=== PATIENT | male | born 1980 | race African-American/Black ===

== ENCOUNTER 2019-03-17 03:39 | Emergency (ER) | payer OTHER ==
[~2019-03-17] VITALS: Ht 175.3 cm; Wt 80.9 kg
[2019-03-17] MEDS ORDERED: NS 1,000 ML IV ONE (06:45)
[2019-03-17] MEDS ORDERED: KETOROLAC 30 MG/ML VIAL (J1885) IV ONE (06:45)
[2019-03-17 07:13] LABS: BASO # 0.1 10^3/uL (0.0-0.2); EOS # 0.2 10^3/uL (0.0-0.5); EOS % 3.1 % (0.0-3.0); HEMATOCRIT 42.4 % (42.0-52.0); HEMOGLOBIN 13.5 g/dl (13.5-17.5); LYMPH # 2.1 10^3/uL (1.5-5.0); MEAN CORPUSCULAR HEMOGLOBIN 27.1 pg (27.0-33.0); MEAN CORPUSCULAR HGB CONC 31.8 g/dl (32.0-36.5); MONO # 0.4 10^3/uL (0.0-0.8); MONO % 8.2 % (0.0-5.0); NEUTROPHILS # 2.2 10^3/uL (1.5-8.5); NEUTROPHILS % 45.1 % (36.0-66.0); PLATELET COUNT, AUTOMATED 228 10^3/uL (150-450); RED BLOOD COUNT 4.99 10^6/uL (4.30-6.10); WHITE BLOOD COUNT 4.9 10^3/uL (4.0-10.0)
--- NOTE | 2019-03-17 07:29 | REPVR ---
PROCEDURE INFORMATION: Exam: CT Abdomen And Pelvis Without Contrast Exam date and time: 03/17/2019 6:46 AM Age: 38 years old Clinical indication: Abdominal pain; Flank; Left; Additional info: Left flank pain TECHNIQUE: Imaging protocol: Computed tomography of the abdomen and pelvis without contrast. Radiation optimization: All CT scans at this facility use at least one of these dose optimization techniques: automated exposure control; mA and/or kV adjustment per patient size (includes targeted exams where dose is matched to clinical indication); or iterative reconstruction. COMPARISON: No relevant prior studies available. FINDINGS: Liver: Normal. No mass. Gallbladder and bile ducts: Normal. No calcified stones. No ductal dilation. Pancreas: Normal. No ductal dilation. Spleen: Normal. No splenomegaly. Adrenals: Normal. No mass. Kidneys and ureters: Normal. No hydronephrosis. Stomach and bowel: There is moderate diffuse colonic stool burden particularly in the rectum. There is suggestion of mild rectal wall thickening. There are likely some fluid containing small bowel loops adjacent to the cecum given the appearance of pericecal fluid. Appendix: No evidence of appendicitis. Intraperitoneal space: Unremarkable. No free air. No significant fluid collection. Vasculature: Unremarkable. No abdominal aortic aneurysm. Lymph nodes: Unremarkable. No enlarged lymph nodes. Bladder: The urinary bladder is under distended limiting its evaluation. Reproductive: Unremarkable as visualized. Bones/joints: Unremarkable. No acute fracture. Soft tissues: Unremarkable. IMPRESSION: 1. Moderate diffuse colonic stool burden particularly in the rectum where there is suggestion of some rectal wall thickening. Correlate clinically for proctitis. 2. Nondistended urinary bladder limiting evaluation for wall thickening. Correlate clinically for cystitis. Electronically signed by: Jeronimo Patel On 03/17/2019 07:28:46 AM
[2019-03-17 07:34] LABS: ALBUMIN 3.6 GM/DL (3.2-5.2); ALT/SGPT 16 U/L (12-78); BILIRUBIN,TOTAL 0.4 MG/DL (0.2-1.0); BLOOD UREA NITROGEN 17 MG/DL (7-18); CARBON DIOXIDE LEVEL 27 MEQ/L (21-32); CHLORIDE LEVEL 106 MEQ/L (98-107); CREATININE FOR GFR 1.05 MG/DL (0.70-1.30); GLOMERULAR FILTRATION RATE > 60.0 (>60); GLUCOSE, FASTING 84 MG/DL (70-100); LIPASE 294 U/L (73-393); POTASSIUM SERUM 3.8 MEQ/L (3.5-5.1); SODIUM LEVEL 139 MEQ/L (136-145)
[2019-03-17] MEDS ORDERED: LIDOCAINE 1% SDV 5 ML VIAL DILUENT ONE (08:00)
[2019-03-17] MEDS ORDERED: cefTRIAXone SOD 250 MG VIAL (J0696) IM ONE (08:00)
[2019-03-17] MEDS ORDERED: CIPROFLOXACIN 500 MG TAB PO ONE (08:00)
[2019-03-17] MEDS ORDERED: AZITHROMYCIN 250 MG TAB PO ONE (08:00)
[2019-03-17] MEDS ORDERED: CIPR-249 PO (08:02)
[2019-03-17 08:23] VITALS: BP 105/60
[2019-03-17 09:48] LABS: CHLAMYDIA DNA AMPLIFICATION NEGATIVE (NEGATIVE); GC DNA AMPLIFICATION NEGATIVE (NEGATIVE)
== END 2019-03-17 08:55 | disposition home or self-care (01) ==
LOC: M ED 03:39
DX: K51.219 Ulcerative (chronic) proctitis with unspecified complications (principal); R10.9 Unspecified abdominal pain; Z79.899 Other long term (current) drug therapy
CPT/HCPCS: 74176; 80053; 81001; 83690; 85025; 87491; 87591; 96361; 96372; 96374; 99284; J0696; J1885

== ENCOUNTER 2022-10-01 08:44 | Emergency (ER) | payer OTHER ==
[~2022-10-01] VITALS: Ht 175.3 cm; Wt 91.2 kg
[~2022-10-01 08:44] MED LIST: CIPR-249 PO
[2022-10-01 08:45] VITALS: BP 121/79; TEMP 97.2; O2SAT 100
== END 2022-10-01 11:03 | disposition left against medical advice (07) ==
LOC: M ED 08:44
DX: Z53.21 Procedure and treatment not carried out due to patient leaving prior to being seen by health care provider (principal)